=== PATIENT | male | born 1950 | race Caucasian/White ===

== ENCOUNTER 2022-11-11 19:50 | Emergency (ER) | payer MEDICARE ==
[~2022-11-11 19:50] MED LIST: Iopamidol 370 76% 100 ML VIAL ONE
[2022-11-11] MEDS ORDERED: Nitroglycerin 0.4 MG TAB (25 Tab Bottle) ONE (20:12)
[2022-11-11] MEDS ORDERED: Aspirin Chewable 81 MG TAB ONE (20:12)
[2022-11-11 20:27] LABS: #Eosinphils 0.1 thou/uL (0.0-0.7); #Lymphocytes 1.3 thou/uL (1.20-3.40); #Monocytes 0.5 thou/uL (0.11-0.59); #Neutrophils 3.5 thou/uL (1.40-6.50); %Basophils 0.7 % (0.0-1.0); %Eosinophils 2.3 % (0.0-10.0); %Monocytes 8.8 % (0.0-10.0); %Neutrophils 64.2 % (42.0-75.0); Hematocrit 39.7 % (42.0-52.0); Hemoglobin 13.6 g/dL (14.0-18.0); Mean Corpuscular HGB CONC 34.1 g/dL (32.0-36.0); Mean Corpuscular Hemoglobin 30.5 pg (27.0-31.0); Mean Corpuscular Volume 89.4 fl (78.0-98.0); Mean Platelet Volume 7.1 fL (7.4-10.4); Platelet Count 176 10x3/uL (130-400); RBC Distribution Width 11.6 % (11.5-14.5); Red Blood Cell (RBC) Count 4.45 mill/uL (4.70-6.10); White Blood Cell (WBC) Count 5.5 10x3/uL (4.8-10.8)
[2022-11-11 20:32] LABS: Troponin I Less than 0.010 ng/mL (< 0.028)
[2022-11-11 20:34] LABS: ALT (SGPT) 24 U/L (8-55); AST (SGOT) 26 U/L (5-34); Albumin 4.8 g/dL (3.4-4.8); Alkaline Phosphatase 74 U/L (40-110); Anion Gap 16 mmol/L (10-20); BUN (Urea Nitrogen) 19 mg/dL (8.4-25.7); Bilirubin, Total 0.6 mg/dL (0.2-1.2); Calc. Creatinine Clearance 0 mL/min (70-130); Calcium 9.7 mg/dL (7.8-10.44); Carbon Dioxide 22 mmol/L (23-31); Chloride 101 mmol/L (98-107); Estimated GFR 57; Globulin 2.8 g/dL (2.4-3.5); Glucose 96 mg/dL (83-110); Potassium 3.6 mmol/L (3.5-5.1); Protein, Total 7.6 g/dL (5.8-8.1); Sodium 135 mmol/L (136-145)
[2022-11-11] MEDS ORDERED: Morphine 4 MG/ML VIAL ONE (21:16)
[2022-11-11] MEDS ORDERED: Nitroglycerin 2% Ointment 1 INCH/1 GM Packet ONE (21:37)
== END 2022-11-11 22:09 | disposition short-term general hospital (02) ==
LOC: NAV ERS 19:50
DX: R07.89 Other chest pain (principal); R79.1 Abnormal coagulation profile; I10 Essential (primary) hypertension; E78.5 Hyperlipidemia, unspecified; Z79.899 Other long term (current) drug therapy; Z87.891 Personal history of nicotine dependence
CPT/HCPCS: 36415; 71275; 80053; 83880; 84484; 85025; 85379; 93005; 94760; J2270; Q9967

== ENCOUNTER 2023-01-31 19:26 | Emergency (ER) | payer MEDICARE | END 2023-01-31 20:18 | disposition home or self-care (01) | LOC: NAV ERS 19:26 | DX: I10 Essential (primary) hypertension (principal); I25.10 Atherosclerotic heart disease of native coronary artery without angina pectoris; E78.5 Hyperlipidemia, unspecified; Z87.891 Personal history of nicotine dependence; Z79.899 Other long term (current) drug therapy; Z79.82 Long term (current) use of aspirin | CPT/HCPCS: 99283 ==